=== PATIENT | female | born 1975 | race Asian ===

== ENCOUNTER 2020-03-08 12:31 | Emergency (ER) | payer OTHER ==
[2020-03-08] MEDS ORDERED: hydrOXYzine HCL 100 MG/2 ML SDV IM ONE (13:49)
--- NOTE | 2020-03-08 13:54 | EDM.PDOC ---
ED HPI GENERAL MEDICAL PROBLEM - General Chief Complaint: Skin Complaint Stated Complaint: ALLERGIC REACTION Time Seen by Provider: 03/08/20 13:45 Source of Information: Reports: Patient, Family, RN Notes Reviewed History Limitations: Reports: No Limitations - History of Present Illness INITIAL COMMENTS - FREE TEXT/NARRATIVE: 45-year-old female presents emergency department today with a rash to her lower extremities and to her forearms she was spending some time in the water with known history of swimmers itch, she states it is quite itchy she has used Benadryl with minimal relief - Related Data Allergies Allergy/AdvReac Type Severity Reaction Status Date / Time aspirin Allergy Shortness Verified 03/08/20 13:33 of Breath latex Allergy Anaphylactic Verified 03/08/20 13:33 Shock Home Meds: Home Meds Albuterol Sulfate [Albuterol Sulfate Hfa] 2 puff INH Q4H PRN 03/08/20 [History] Sertraline [Zoloft] 50 mg PO DAILY 03/08/20 [History] Triamcinolone Acetonide [Nasacort] 1 spray NASBOTH DAILY 03/08/20 [History] Past Medical History Respiratory History: Reports: Asthma Gastrointestinal History: Reports: Other (See Below) Other Gastrointestinal History: ulcer Psychiatric History: Reports: Depression Dermatologic History: Reports: Other (See Below) Other Dermatologic History: chronic hives - Past Surgical History Head Surgeries/Procedures: Reports: None HEENT Surgical History: Reports: Other (See Below) Other HEENT Surgeries/Procedures: wisdom teeth Respiratory Surgical History: Reports: None GI Surgical History: Reports: None Dermatological Surgical History: Reports: None Social & Family History - Tobacco Use Smoking Status *Q: Never Smoker Second Hand Smoke Exposure: No - Caffeine Use Caffeine Use: Reports: Coffee, Soda - Recreational Drug Use Recreational Drug Use: No ED ROS GENERAL - Review of Systems Review Of Systems: See Below Skin: Reports: Pruritis, Rash ED EXAM, SKIN/RASH Exam: See Below Text/Narrative:: Examination of the integument system mainly lower extremities and upper extremities lower portions of each she has a rash consistent with macular papular areas that were consistent with water exposure that she was in Exam Limited By: No Limitations General Appearance: Alert, Mild Distress Course - Vital Signs Last Recorded V/S: Last Vital Signs Temp 97.2 F 03/08/20 13:31 Pulse 76 03/08/20 13:31 Resp 11 L 03/08/20 13:31 BP 123/75 03/08/20 13:31 Pulse Ox 100 03/08/20 13:31 - Orders/Labs/Meds Orders: Medication Orders Hydroxyzine HCl (Vistaril) 100 mg IM ONETIME ONE Stop: 03/08/20 13:50 Meds: Medications Generic Name Dose Route Start Last Admin Trade Name Ann PRN Reason Stop Dose Admin Hydroxyzine HCl 100 mg 03/08/20 13:49 Vistaril IM 03/08/20 13:50 ONETIME ONE Departure - Departure Time of Disposition: 13:53 Disposition: Home, Self-Care 01 Condition: Fair Clinical Impression: Swimmers' itch - Discharge Information Instructions: Swimmer's Itch Referrals: PCP,None [Primary Care Provider] - Additional Instructions: Take full course of prednisone, continue to use Benadryl as needed for symptomatic care, please followup with your primary care provider in 5-7 days if not better, please call return to the emergency department with worsening of symptoms. 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
== END 2020-03-08 14:08 | disposition home or self-care (01) ==
LOC: JP.ED 12:31
DX: B65.3 Cercarial dermatitis (principal); J45.909 Unspecified asthma, uncomplicated; F32.9 Major depressive disorder, single episode, unspecified; Z88.6 Allergy status to analgesic agent; Z91.040 Latex allergy status; Z79.899 Other long term (current) drug therapy
CPT/HCPCS: 96372; 99283; J3410